=== PATIENT | male | born 1950 | race Caucasian/White ===

== ENCOUNTER → 2024-05-10 10:50 | Outpatient (REF) | payer MEDICARE, SELFPAY | LOC: RAD 10:50 | PROVIDERS: ATTENDING PHYSICIAN Surgery Vascular Surgery; FAMILY PHYSICIAN Internal Medicine; OTHER PHYSICIAN Internal Medicine Cardiovascular Disease | DX: I65.23 Occlusion and stenosis of bilateral carotid arteries (principal); I71.019 Dissection of thoracic aorta, unspecified | CPT/HCPCS: 71275; 74174; 93880; Q9967 ==

== ENCOUNTER → 2024-11-26 10:07 | Outpatient (REF) | payer MEDICARE, SELFPAY | LOC: HWRCS 10:07 | PROVIDERS: ATTENDING PHYSICIAN Internal Medicine Cardiovascular Disease; FAMILY PHYSICIAN Internal Medicine | DX: I50.22 Chronic systolic (congestive) heart failure (principal); I25.10 Atherosclerotic heart disease of native coronary artery without angina pectoris | CPT/HCPCS: 93306 ==

== ENCOUNTER → 2024-12-30 08:24 | Outpatient (REF) | payer MEDICARE, SELFPAY ==
--- NOTE | 2024-12-30 08:59 | CARDSERVLU ---
Echocardiogram with Lumason completed after protocol screening completed. Allergies verified.
Patent IV site: 22 g angio inserted in RAC without incident, 1st attempt
IV site flushed with 0.9% NaCl pre and post administration.
Diluted bolus method utilized to enhance visualization of ventricular ballard.
Total volume given: 3 mL
Patient tolerated all procedures well without complications.
IV d/c'd when study completed; bandage applied after pressure maintained
== END ==
LOC: RCS 08:24
PROVIDERS: ATTENDING PHYSICIAN Student in an Organized Health Care Education/Training Program; FAMILY PHYSICIAN Internal Medicine; OTHER PHYSICIAN Internal Medicine Cardiovascular Disease
DX: I25.5 Ischemic cardiomyopathy (principal); I25.10 Atherosclerotic heart disease of native coronary artery without angina pectoris; I50.22 Chronic systolic (congestive) heart failure; Z95.2 Presence of prosthetic heart valve
CPT/HCPCS: 93308; Q9950